=== PATIENT | female | born 1975 | race Caucasian/White ===

== ENCOUNTER → 2016-06-01 | Outpatient (CLI) | payer BC ==
[2016-06-01 16:18] LABS: AUTOMATED NEUTROPHIL # 6.9 TH/MM3 (1.8-7.7); BASOPHIL % 0.2 % (0.0-2.0); EOSINOPHIL % 0.4 % (0.0-4.0); HEMATOCRIT 40.5 % (35.0-46.0); HEMO FLAGS DIFF FINAL; LYMPH % 29.2 % (9.0-44.0); LYMPHOCYTE # 3.1 TH/MM3 (1.0-4.8); MEAN CELL VOLUME 94.3 FL (80.0-100.0); MEAN CORPUSCULAR HEMOGLOBIN 31.9 PG (27.0-34.0); MEAN CORPUSCULAR HGB CONC 33.9 % (32.0-36.0); MONO % 5.6 % (0.0-8.0); NEUT % 64.6 % (16.0-70.0); PLATELET COUNT 260 TH/MM3 (150-450); RED BLOOD COUNT 4.29 MIL/MM3 (4.00-5.30); RED CELL DISTRIBUTION WIDTH 12.7 % (11.6-17.2); WHITE BLOOD COUNT 10.7 TH/MM3 (4.0-11.0)
[2016-06-01 16:28] LABS: BLOOD, URINE NEG (NEG); COMMENT (UR) CULT NOT INDICATED; CULTURE IF INDICATED CULT NOT INDICATED; GLUCOSE,URINE NEG (NEG); KETONE, URINE NEG (NEG); MUCUS URINE FEW /lpf (OCC); NITRITE,URINE NEG (NEG); SQUAMOUS EPITHELIAL CELL URINE 1 /hpf (0-5); URINE COLOR YELLOW (YELLW/STRAW)
--- NOTE | 2016-06-02 10:48 | EKG ---
Date Performed: 06/01/2016 Time Performed: 15:13:11 PTAGE: 40 years EKG: Sinus rhythm LOW QRS VOLTAGE IN PRECORDIAL LEADS BORDERLINE ECG NO PREVIOUS TRACING DOCTOR: Samy Wyman Interpretating Date/Time 06/02/2016 10:48:07
== END ==
LOC: CPRE 14:47
PROVIDERS: ATTEND Obstetrics & Gynecology
DX: N92.0 Excessive and frequent menstruation with regular cycle (principal); N94.6 Dysmenorrhea, unspecified; R94.31 Abnormal electrocardiogram [ECG] [EKG]
CPT/HCPCS: 36415; 81001; 84703; 85025; 93005

== ENCOUNTER → 2016-06-04 | Day surgery (SDC) | payer BC ==
--- NOTE | 2016-06-03 08:44 | MH ---
cc: JULIO RENTERIA M.D. DATE OF ADMISSION 06/04/2016 ADMISSION DIAGNOSIS Menorrhagia and dysmenorrhea. HISTORY OF PRESENT ILLNESS A 40-year-old white female para 0 has had increasing menstrual flow and menstrual pain over the last one year. She is now admitted for surgical evaluation. Her ultrasound from 03/01/16 showed a 3.8 cm right ovarian cyst. Uterus was 9.4 cm. Left ovary was normal. PAST SURGICAL HISTORY 1. She had an ACL repair right side in 2009. 2. She had a LEEP procedure for JOSE II-III with free margins on 01/13/2015 MEDICATIONS 1. Vitamins. 2. Acyclovir 800 mg daily ALLERGIES None TRANSFUSIONS None. 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 Alcohol occasional, tobacco none. Drugs none. FAMILY HISTORY Noncontributory PHYSICAL EXAM This is a well-nourished well-developed white female. VITAL SIGNS: Stable. HEENT: Exam is normal. CHEST: Clear. HEART: Regular rate. BREASTS: Symmetrical. ABDOMEN: Benign. PELVIC: Normal external genitalia and BUS. Vagina is normal. Cervix normal. Uterus normal size and shape. Adnexa nonpalpable. ASSESSMENT As above. PLAN She is now admitted for hysteroscopy, D&C, laparoscopy. While in the office, I explained the procedures, the risk and benefits and complications and patient would like to proceed. MD TAMMIE Robertson/FLO /8:34 AM /8:38 AM
[~2016-06-04] VITALS: Ht 162.6 cm; Wt 93.7 kg
[~2016-06-04] MED LIST: *MEPERIDINE 25 MG INJ VIAL PERIprocedural Use ONLY ONE; *morphine SULFATE 8 MG/ML PERIprocedure ONLY ONE; ACETAMINOPHEN 1000 MG/100 ML VIAL IV SCH; BUPIVACAINE/EPINEPHRINE 0.5% 50 ML VIAL ONE; DEXAMETHASONE SOD PHOS 4 MG/ML VIAL ONE; FAMOTIDINE 20 MG/2 ML VIAL ONE; INSULIN HUMAN REGULAR 1,000 UNITS/10 ML VIAL SQ PRN; KETOROLAC TROMETHAMINE 60 MG/2 ML (IM) VIAL IM ONE; LACTATED RINGER'S 1000 ML INJ 1,000 ML IV ONE; LACTATED RINGER'S 1000 ML IV SCH; METHYLENE BLUE 10 MG/ML VIAL OTHER ONE; METOCLOPRAMIDE HCL 10 MG/2 ML VIAL IV PRN; METOCLOPRAMIDE HCL 10 MG/2 ML VIAL ONE; METOPROLOL TARTRATE 25 MG TAB PO PRN; MIDAZOLAM HCL 2 MG/2 ML VIAL ONE; NEOSTIGMINE 3 MG/3 ML SYR IV ONE; ONDANSETRON HCL 4 MG/2 ML VIAL IV PUSH ONE; PROPOFOL 200 MG/20 ML AMP IV ONE; SODIUM CHLORID 0.9% 500 ML IV SCH; ceFAZolin 1,000 MG/NS 100 ML IV SCH; fentaNYL CITRATE 250 MCG/5 ML AMP ONE; oxyCODONE/ACETAMINOPHEN 5 MG/325 MG TAB ONE; oxyCODONE/ACETAMINOPHEN 5 MG/325 MG TAB PO PRN
[2016-06-04 06:12] VITALS: BP 117/68; PULSE 69; RESP 16; TEMP 98; O2SAT 98
[2016-06-04 10:00] VITALS: BP 127/63; PULSE 59; RESP 20; TEMP 97.4; O2SAT 95
--- NOTE | 2016-06-08 08:55 | MP ---
cc: JULIO RENTERIA DATE OF SURGERY: 06/04/2016 PREOPERATIVE DIAGNOSIS Menorrhagia, dysmenorrhea. POSTOPERATIVE DIAGNOSIS Menorrhagia, dysmenorrhea, bilateral tubo-ovarian adhesions, endometriosis and tubal occlusion. PROCEDURE Hysteroscopy, D&C, laparoscopy and chromotubation with methylene blue. ANESTHESIA General endotracheal. SURGEON Julio Renteria MD REAL ESTATE LISTING CONSULTANT CELY Mejia ESTIMATED BLOOD LOSS About 20 cc. FLUIDS 700 cc of crystalloid. OBJECTIVE FINDINGS Following the induction of adequate general endotracheal anesthesia, the patient was prepped and draped supine on the operating table in the dorsal lithotomy position in the usual sterile fashion with the bladder being drained via in and out catheterization. Exam revealed a normal size, shape, anterior uterus, no adnexal masses. A weighted speculum was placed in the posterior fornix of the vagina. The anterior lip of the cervix was grasped with a single-tooth tenaculum. The cervix and uterus sounded to 8 cm. The cervix was dilated to an 18 Hanks dilator. The endoscope was passed with normal endocervix, normal endometrium. The scope was withdrawn. Endocervical curettings were obtained with a small serrated curette, endometrium with a small sharp curette. A HUMI was placed. The vaginal instruments were removed. The motor vehicle operator road supervisor's gloves were changed. A 0.5 cm infraumbilical incision was made with a knife and a 5 port was placed followed by the laparoscope and attached video cam, and a second 5 suprapubic. The pelvic contents revealed a uterus of normal size and shape, anterior cul-de-sac clear. The posterior cul-de-sac revealed dense adhesions of each ovary to the sidewall and to each tube to each respective ovary with implants of endometriosis. Both tubes appeared to be occluded. The appendix could not be seen. The liver edge was normal. Methylene blue injected and observed to fill to the end of the tubes, but would not spill. The procedure was then terminated. Gas was allowed to escape. Each port site was injected with 5 cc of 0.5% Marcaine with epinephrine and sutured with 3-0 Monocryl. Steri-Strips were applied. The HUMI was removed from the vagina. [facility] She was awakened and taken to the recovery room in good condition. MD TORI Robertson /8:07 AM /8:44 AM
== END | disposition home or self-care (01) ==
LOC: HSDC 05:14
PROVIDERS: ATTEND Obstetrics & Gynecology
DX: N92.0 Excessive and frequent menstruation with regular cycle (principal); N94.6 Dysmenorrhea, unspecified
CPT/HCPCS: 00840; 00952; 49320; 58350; 58558; 88305; J0131; J0690; J1100; J1885; J2175; J2250; J2270; J2405; J2710; J2765; J3010; J7120

== ENCOUNTER → 2017-08-09 | Outpatient (CLI) | payer BC ==
[2017-08-09 14:32] LABS: AUTOMATED NEUTROPHIL # 4.1 TH/MM3 (1.8-7.7); BASOPHIL % 0.7 % (0.0-2.0); EOSINOPHIL % 0.6 % (0.0-4.0); HEMATOCRIT 40.2 % (35.0-46.0); HEMOGLOBIN 13.5 GM/DL (11.6-15.3); LYMPH % 35.2 % (9.0-44.0); LYMPHOCYTE # 2.6 TH/MM3 (1.0-4.8); MEAN CELL VOLUME 93.5 FL (80.0-100.0); MEAN CORPUSCULAR HEMOGLOBIN 31.5 PG (27.0-34.0); MEAN CORPUSCULAR HGB CONC 33.6 % (32.0-36.0); MEAN PLATELET VOLUME 8.2 FL (7.0-11.0); MONO % 6.7 % (0.0-8.0); MONOCYTE # 0.5 TH/MM3 (0-0.9); NEUT % 56.8 % (16.0-70.0); PLATELET COUNT 283 TH/MM3 (150-450); RED BLOOD COUNT 4.29 MIL/MM3 (4.00-5.30); RED CELL DISTRIBUTION WIDTH 12.7 % (11.6-17.2); WHITE BLOOD COUNT 7.3 TH/MM3 (4.0-11.0)
[2017-08-09 14:34] LABS: BILIRUBIN, URINE NEG (NEG); BLOOD, URINE NEG (NEG); GLUCOSE,URINE NEG (NEG); KETONE, URINE NEG (NEG); NITRITE,URINE NEG (NEG); SQUAMOUS EPITHELIAL CELL URINE 1 /hpf (0-5); URINE COLOR YELLOW (YELLW/STRAW); URINE LEUKOCYTE ESTERASE NEG (NEG)
--- NOTE | 2017-08-10 14:20 | EKG ---
Date Performed: 08/09/2017 Time Performed: 13:30:43 PTAGE: 42 years EKG: Sinus rhythm NORMAL ECG NO PREVIOUS TRACING DOCTOR: Samy Wyman Interpretating Date/Time 08/10/2017 14:20:25
== END ==
LOC: CPRE 13:06
PROVIDERS: ATTEND Obstetrics & Gynecology
DX: Z01.812 Encounter for preprocedural laboratory examination (principal); Z01.810 Encounter for preprocedural cardiovascular examination; D06.9 Carcinoma in situ of cervix, unspecified
CPT/HCPCS: 36415; 81001; 84702; 85025; 93005

== ENCOUNTER → 2017-08-10 | Day surgery (SDC) | payer BC ==
--- NOTE | 2017-08-09 21:02 | MH ---
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 HISTORY OF PRESENT ILLNESS: A 42-year-old white female, para 0, had LEEP procedure on 01/13/2015 for JOSE of 2-3 with free margins. Her Pap smear from 07/14/2017 returned with low-grade dysplasia. Colposcopy was performed on 07/22/2017 and her ECC returned with high-grade dysplasia, JOSE 3, possible carcinoma in situ. She is now admitted for cone biopsy. ADDITIONAL PAST MEDICAL HISTORY: She had an ACL repair in 2009. She had a laparoscopy and D and C 05/2016 with findings of extensive pelvic adhesions. MEDICATIONS: 1. Vitamins 2. Acyclovir. ALLERGIES: NONE. TRANSFUSIONS: None. OBSTETRIC HISTORY: None. SOCIAL HISTORY: She is . 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 Alcohol, occasional. Tobacco none. Drugs none. REVIEW OF SYSTEMS: Negative. FAMILY HISTORY: Noncontributory. PHYSICAL EXAMINATION: GENERAL: She is a well-nourished, well-developed, white female. VITAL SIGNS: Stable. HEENT: Normal. CHEST: Clear. HEART: Regular rate. BREASTS: Symmetrical. ABDOMEN: Benign. PELVIC: Vagina normal, cervix normal, uterus normal size and shape. Adnexa nonpalpable. ASSESSMENT: As above. PLAN: She is now admitted for cone biopsy. While in the hospital. I explained the procedures, the risk and benefits and complications and possible need for surgery pending findings. Discussed risks of hemorrhage and infection from the procedure. The patient would like to proceed. MD TAMMIE Robertson/ , 08:46 PM , 09:00 PM
[~2017-08-10] VITALS: Ht 162.6 cm; Wt 97.6 kg
[~2017-08-10] MED LIST changes: -*MEPERIDINE 25 MG INJ VIAL PERIprocedural Use ONLY ONE; +*morphine SULFATE 4 MG/ML PERIprocedure ONLY ONE; -*morphine SULFATE 8 MG/ML PERIprocedure ONLY ONE; +ACETAMINOPHEN 1000 MG/100 ML 100 ML IV PRN; -ACETAMINOPHEN 1000 MG/100 ML VIAL IV SCH; -BUPIVACAINE/EPINEPHRINE 0.5% 50 ML VIAL ONE; +CHLORHEXIDINE GLUCONATE 2 % 1 PACK (2 CLOTHS) TOPICAL PRN; +DEXAMETHASONE SOD PHOS 4 MG/ML VIAL IV ONE; -DEXAMETHASONE SOD PHOS 4 MG/ML VIAL ONE; +DO NOT ADM ANY ANTICOAGULANT DRUGS PRN; -FAMOTIDINE 20 MG/2 ML VIAL ONE; -INSULIN HUMAN REGULAR 1,000 UNITS/10 ML VIAL SQ PRN; +KETOROLAC TROMETHAMINE 30 MG/ML (IVP) VIAL IV PUSH ONE; -KETOROLAC TROMETHAMINE 60 MG/2 ML (IM) VIAL IM ONE; -LACTATED RINGER'S 1000 ML INJ 1,000 ML IV ONE; +LACTATED RINGER'S 1000 ML IV PRN; -LACTATED RINGER'S 1000 ML IV SCH; +LIDOCAINE 0.5%/EPINEPHrine 1:200,000 SOLN 50 ML VIAL ONE; +LIDOCAINE HCL 1% PF 5 ML SYRINGE OTHER ONE; -METHYLENE BLUE 10 MG/ML VIAL OTHER ONE; -METOCLOPRAMIDE HCL 10 MG/2 ML VIAL ONE; -NEOSTIGMINE 3 MG/3 ML SYR IV ONE; +POVIDONE IODINE 5% (ANTISEPSIS KIT) 4 APPLICATIONS EACH NARE PRN; +SODIUM CHLORID 0.9% 500 ML IV PRN; -SODIUM CHLORID 0.9% 500 ML IV SCH; -fentaNYL CITRATE 250 MCG/5 ML AMP ONE; -oxyCODONE/ACETAMINOPHEN 5 MG/325 MG TAB ONE
--- NOTE | 2017-08-10 08:32 | MP ---
cc: Дмитрий Barth MD DATE OF OPERATION: 08/10/2017 PREOPERATIVE DIAGNOSIS: Cervical intraepithelial neoplasia 3. POSTOPERATIVE DIAGNOSIS: Cervical intraepithelial neoplasia 3. Pathology pending. PROCEDURE PERFORMED: Cold knife cone biopsy. ANESTHESIA: General LMA. ESTIMATED BLOOD LOSS: About 25 mL. FLUIDS: About half liter crystalloid. OBJECTIVE FINDINGS: Following induction of adequate general LMA anesthesia, the patient was prepped and draped supine on the operating table in dorsal lithotomy position in sterile fashion with the bladder being drained via in and out catheterization. Exam under anesthesia revealed a normal size, shape anterior uterus. No adnexal masses. Heavy weighted speculum was placed to the posterior fornix of vagina. Anterior lip of the cervix was grasped with a single-tooth tenaculum. Cervix was injected with 20 mL of lidocaine 0.5% with epinephrine. The cervical os was sounded with soft dilator and the cervix was stained with Lugol's solution. Using a 15 blade with a bent handle, the cone biopsy was performed and tagged at 12 o'clock. ECC obtained and the cervical cone bed cauterized with the Bovie. With the soft dilator in place to renard the os, 4 quadrant sutures of 0 Vicryl were placed, going from outside to inside to outside, each one encompassing 1/4 of the cone bed, with 1 additional stitch placed at the 6-7 o'clock position. These were then tied down in succession, each one encompassing about 1/4 the cone bed for good hemostasis with the soft dilator in place to ensure patency of the cervical canal. When complete, there was no bleeding. The cone was dusted with Shlomo. All instruments were removed. All counts were correct. The patient's legs were taken out of the stirrups. She was awakened and taken to the recovery room in good condition. MD TAMMIE Robertson/FABRICIO , 08:11 AM , 08:30 AM
[2017-08-10 09:50] VITALS: BP 121/68; PULSE 75; RESP 16; TEMP 98.7; O2SAT 97
== END | disposition home or self-care (01) ==
LOC: HSDC 05:33
PROVIDERS: ATTEND Obstetrics & Gynecology
DX: R87.613 High grade squamous intraepithelial lesion on cytologic smear of cervix (HGSIL) (principal)
CPT/HCPCS: 00940; 57520; 84702; 88305; 88307; J0131; J0690; J1100; J1885; J2250; J2270; J2405; J3010; J7120